=== PATIENT | male | born 1995 ===

== ENCOUNTER 2017-10-05 20:30 | Emergency (ER) | payer OTHER, BC ==
[~2017-10-05] VITALS: Ht 180.3 cm; Wt 79.4 kg
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
[2017-10-05 21:58] VITALS: BP 148/85
[2017-10-05] MEDS ORDERED: IBUP1TAB84 PO (22:01)
== END 2017-10-05 22:11 | disposition home or self-care (01) ==
LOC: ER 20:39
DX: M54.2 Cervicalgia (principal); V43.62XA Car passenger injured in collision with other type car in traffic accident, initial encounter
CPT/HCPCS: 72052; 99283; L0172

== ENCOUNTER 2018-01-30 15:23 | Emergency (ER) | payer BC, OTHER ==
[~2018-01-30 15:23] MED LIST: IBUP1TAB84 PO
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
[2018-01-30 17:12] VITALS: BP 136/89
== END 2018-01-30 17:11 | disposition home or self-care (01) ==
LOC: EDUNIT# 15:23 → ER 15:24
DX: H57.13 Ocular pain, bilateral (principal); Z77.098 Contact with and (suspected) exposure to other hazardous, chiefly nonmedicinal, chemicals
CPT/HCPCS: 99283